=== PATIENT | female | born 1960 | race Caucasian/White ===

== ENCOUNTER 2025-02-18 08:39 | Day surgery (SDC) | payer MEDICARE, MEDICAID ==
[~2025-02-18 08:39] MED LIST: Ondansetron 4 MG/2 ML SDV IVPUSH PRN
[2025-02-18] MEDS ORDERED: Midazolam 1 MG/ML 2 ML SDV IV ONE (08:40)
[2025-02-18] MEDS ORDERED: Sodium Chloride 0.9% 10 ML Syringe IV ONE (08:40)
[2025-02-18] MEDS ORDERED: Dexamethasone 4 MG/ML SDV IV ONE (08:40)
[2025-02-18] MEDS: Povidone-Iodine 5% Sterile Ophth Soln 30 ML Bottle EYERT ONE ×2 (09:29→09:54)
[2025-02-18] MEDS: Moxifloxacin 0.5% Ophth Soln 3 ML Bottle EYERT ONE (09:29)
[2025-02-18] MEDS: Phenylephrine 10% Ophth Soln 5 ML Bot EYERT ONE (09:30)
[2025-02-18] MEDS: Cataract Ophth Solution EYERT ONE (09:31)
[2025-02-18] MEDS: Timolol Maleate 0.5% Ophth Soln 5 ML Bottle EYERT ONE (09:31)
[2025-02-18] MEDS: Apraclonidine 0.5% Ophth Soln 5 ML Bot EYERT ONE (10:15)
[2025-02-18] MEDS: Dexamethasone/Neomycin/Polymyxin B Ophth Oint 3.5 GM Tube EYERT ONE (10:16)
[2025-02-18] MEDS: Diclofenac Sodium 0.1% Ophth Soln 5 ML Bottle EYERT ONE (10:16)
== END 2025-02-18 10:45 | disposition home or self-care (01) ==
LOC: DL.SDS 08:39
PROVIDERS: ATTEND Ophthalmology
DX: H25.811 Combined forms of age-related cataract, right eye (principal); I10 Essential (primary) hypertension; E78.5 Hyperlipidemia, unspecified; J44.9 Chronic obstructive pulmonary disease, unspecified; E66.9 Obesity, unspecified; Z68.41 Body mass index [BMI] 40.0-44.9, adult; Z87.891 Personal history of nicotine dependence; Z91.018 Allergy to other foods; Z79.899 Other long term (current) drug therapy
CPT/HCPCS: A9270-GY; J1100; J2003; J2250; J3373; J3490; V2632